=== PATIENT | male | born 1990 | race Asian ===

== ENCOUNTER 2016-05-13 10:12 | Emergency (ER) | payer OTHER ==
[~2016-05-13] VITALS: Ht 175.3 cm; Wt 66.0 kg
[~2016-05-13 10:12] MED LIST: AMOXIL125 MG; DOXYCYCLINE 10100 MG PO
[2016-05-13 10:25] VITALS: BP 128/71; PULSE 58; TEMP 97.9
== END 2016-05-13 10:54 | disposition left against medical advice (07) ==
LOC: COL.ER 10:12
DX: Z53.21 Procedure and treatment not carried out due to patient leaving prior to being seen by health care provider (principal)

== ENCOUNTER 2017-03-01 13:14 | Emergency (ER) | payer OTHER ==
[~2017-03-01] VITALS: Ht 175 cm; Wt 69.0 kg
[2017-03-01 13:20] VITALS: BP 139/78; TEMP 98
[2017-03-01 14:18] VITALS: PULSE 73
== END 2017-03-01 14:18 | disposition home or self-care (01) ==
LOC: COL.ER 13:14
DX: Z11.4 Encounter for screening for human immunodeficiency virus [HIV] (principal)